=== PATIENT | male | born 1975 | race Caucasian/White ===

== ENCOUNTER → 2019-02-25 | Day surgery (SDC) | payer BC ==
[2019-02-22 10:36] VITALS: BMI 41.2
[~2019-02-25] MED LIST: BUPIVACAIN-EPI 0.25%-1:200,000 30 ML VIAL SQ ONE; DEXAMETHASONE SOD PHOSPHATE 10 MG/ML 1 ML VIAL IV ONE; GLYCOPYRROLATE 0.2 MG/ML 2 ML VIAL ONE; HEPARIN SODIUM,PORCINE 5,000 UNIT/ML 1 ML VIAL SQ ONE; HYDROcodone/APAP 5-325MG 1 EACH TAB PO ONE; LACTATED RINGERS 1,000 ML IV ONE; LACTATED RINGERS 1,000 ML IV SCH; LIDOCAINE 1% 20 ML VIAL (10MG/ML) FOR IV START INTRADERMA PRN; LIDOCAINE 1% INJ 10MG/ML (20 ML MDV) ONE; MIDAZOLAM 2 MG/2 ML VIAL ONE; ONDANSETRON 4 MG/2 ML VIAL IVP ONE; PROPOFOL 10 MG/ML 20 ML VIAL IV ONE; SUCCINYLCHOLINE CHLORIDE VIAL 200 MG/10 ML VIAL IV ONE; ceFAZolin 3 GM in SODIUM CHLORIDE 0.9% 100 ML IVPB ONE; ePHEDrine SULFATE/0.9% NACL/PF 50 MG/5 ML SYRINGE IV ONE; fentaNYL (PF) 50 MCG/ML 2 ML AMP IV PRN; fentaNYL (PF) 50 MCG/ML 2 ML AMP ONE; metroNIDAZOLE-NS PMX 500 MG in SALINE 1 100ML.BAG IVPB ONE
--- NOTE | 2019-02-25 07:52 | P.GSHP ---
History of Present Illness H&P Date: 02/25/19 Chief Complaint: Pilonidal cyst This a 43-year-old male who presents today for excision of pilonidal cyst. Patient is a chronically inflamed pilonidal cyst with history of abscess. Patient aware that we will be packed after surgery. Past Medical History Past Medical History: Hypertension Additional Past Medical History / Comment(s): pilonidal cyst, Hx kidney stones History of Any Multi-Drug Resistant Organisms: None Reported Additional Past Surgical History / Comment(s): lithotripsy, hx of pilodinal cyst sx Past Anesthesia/Blood Transfusion Reactions: Previous Problems w/ Anesthesia Additional Past Anesthesia/Blood Transfusion Reaction / Comment(s): states had epidural for prev. pilonidal cyst that leaked and he had to have blood patch Smoking Status: Former smoker - Past Family History Father Family Medical History: Cancer Medications and Allergies Home Medications Medication Instructions Recorded Confirmed Type Citalopram Hydrobromide 40 mg PO QAM 02/22/19 02/25/19 History [Citalopram HBr] Enalapril Maleate [Vasotec] 20 mg PO QAM 02/22/19 02/22/19 History Ibuprofen [Motrin Ib] 200 mg PO Q6H PRN 02/22/19 02/25/19 History amLODIPine [Norvasc] 5 mg PO QAM 02/22/19 02/22/19 History Allergies Allergy/AdvReac Type Severity Reaction Status Date / Time No Known Allergies Allergy Verified 02/25/19 06:44 Surgical - Exam Vital Signs Temp Pulse Resp BP Pulse Ox 97.1 F L 74 18 127/81 95 02/25/19 06:43 02/25/19 06:43 02/25/19 06:43 02/25/19 06:43 02/25/19 06:43 - General well developed, well nourished, no distress - Eyes PERRL - ENT normal pinna - Neck no masses - Respiratory normal expansion - Cardiovascular Rhythm: regular - Abdomen Abdomen: soft, non tender Assessment and Plan Assessment: Prognosis. We'll perform excision.
[2019-02-25 08:56] VITALS: TEMP 97.6
--- NOTE | 2019-02-25 08:58 | P.OP ---
Date of Procedure: 02/25/19 Preoperative Diagnosis: Pilonidal cyst with abscess Postoperative Diagnosis: Pilonidal cyst with abscess Procedure(s) Performed: Excision of pilonidal cyst Anesthesia: VICTORINO Surgeon: Juventino Schmidt Estimated Blood Loss (ml): 10 Pathology: other (Pilonidal cyst) Condition: stable Disposition: PACU Description of Procedure: The patient's placed Table in the prone position. He received general anesthesia. His pollinosis was prepped and draped usual sterile fashion. Elliptical skin incision was made around the pylorus is then using cautery and Harmonic scissors by mouth cyst was excised. The wound was packed with wet-to-dry Kerlix. Patient top she will was sent to recovery room in stable condition.
[2019-02-25] MEDS: HYDROmorphone 0.5 MG/0.5 ML SYRINGE IVP PRN ×4 (09:00→09:17)
[2019-02-25 09:41] VITALS: BP 107/72; PULSE 66; RESP 17
== END | disposition home or self-care (01) ==
LOC: OR 06:22
PROVIDERS: ATTEND Surgery
DX: L05.01 Pilonidal cyst with abscess (principal); I10 Essential (primary) hypertension; E66.01 Morbid (severe) obesity due to excess calories; Z79.899 Other long term (current) drug therapy; Z87.442 Personal history of urinary calculi; Z87.891 Personal history of nicotine dependence; Z98.890 Other specified postprocedural states; Z68.41 Body mass index [BMI] 40.0-44.9, adult
CPT/HCPCS: 88304; 11770; J2250; J0330; J1644; J1100; J0690; J2405; J2001; J3010; J2704; J1170

== ENCOUNTER → 2019-04-09 | Outpatient (CLI) | payer BC ==
--- NOTE | 2019-04-09 20:59 | CONS ---
CONSULTATION REASON FOR CONSULTATION: Sleep apnea. 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 He is tired all the time. He snores loudly. He quits breathing on multiple occasions. Sleep is very much fragmented and he has excessive tiredness and sleepiness during the day in addition to an [place] score of 22. He is considered to be at an increased risk of falling asleep while driving. He has never been involved in a motor vehicle accident. His sleep is quite fragmented and he wakes up at least 4 times in the middle of the night, sometimes with loud snoring. His weight is up; he is currently up to 340 pounds. Over the past 10 years he has gained around 40 pounds. He claims that his weight gain occurred especially after he quit smoking several years back. PAST MEDICAL HISTORY: Obesity, hypertension and osteoarthritis. SURGICAL HISTORY: Resection of a pilonidal cyst. DRUG ALLERGIES: NOT KNOWN. OUTPATIENT MEDICATIONS: Outpatient medications include omega-3, amlodipine, enalapril, citalopram and ibuprofen. SOCIAL HISTORY: The patient is an ex-smoker. No history of alcoholism. No history of IV drugs. FAMILY HISTORY: Negative for sleep apnea. Father from cardiac disease. REVIEW OF SYSTEMS: Fourteen-point review of systems was done. Positive findings were all mentioned above in the history of present illness. He is quite sleepy and somnolent. No sleepwalking or sleeptalking. No grinding of the teeth. No palpitation. No heartburn or chest pain overnight. He is very much tired and he falls asleep during the day. He worries about his sleepiness. He prefers to sleep on his side rather than stomach. He drinks two caffeinated beverages during the day. PHYSICAL EXAMINATION: VITAL SIGNS: BP is 144/78, pulse is 79, respirations 16, temperature 98.0, saturation 95% on room air. Height is 6 feet 2 inches, weight is 355 and BMI 44.7. [place] score is 22. Neck size 21. GENERAL APPEARANCE: Obese, calm, comfortable. HEAD: Atraumatic, normocephalic. NECK: Supple. No JVD. No goiter or neck masses. Mallampati class IV. LUNGS: Clear to auscultation. HEART: Heart sounds are regular rate and rhythm. Normal S1, S2. No S3, S4. No murmurs. ABDOMEN: Soft, nontender. No significant organomegaly. No direct tenderness, rebound or guarding. EXTREMITIES: No edema. No cyanosis or clubbing. NEUROLOGIC: Awake and alert. There is no focal neurological deficit. PSYCHIATRIC: Negative for anxiety or depression for now. The patient is taking citalopram and is well treated in that regard. IMPRESSION: 1. Obstructive sleep apnea with a high clinical suspicion; needs to be further investigated. The patient has features to support this diagnosis, as the patient has loud snoring, witnessed apneas and chronic hypersomnia and sleepiness. 2. Hypersomnia with an [place] score of 22; high likelihood for obstructive sleep apnea. 3. Obesity with a body mass index of 44.7. 4. Hypertension. 5. Osteoarthritis. 6. Chronic anxiety/depression, on citalopram. PLAN: 1. Proceed with a home sleep study to screen this patient for sleep apnea. 2. Encourage weight loss. 3. Driving precautions were given, and the patient was asked not to drive, especially if feeling drowsy or sleepy. 4. I asked him to sleep on his side with the head of the bed elevated. 5. Implement good sleep hygiene measures. 6. Continue to see me here in the sleep center following the home sleep study. As mentioned, there is a high likelihood for obstructive sleep apnea in this patient. Further recommendations are to follow based on the results of the sleep study. RICHARD / IMTIAZ: [id number] /
== END | disposition home or self-care (01) ==
LOC: SLEEP 13:17
PROVIDERS: ATTEND Internal Medicine
DX: G47.30 Sleep apnea, unspecified (principal); E66.9 Obesity, unspecified; I10 Essential (primary) hypertension; M19.90 Unspecified osteoarthritis, unspecified site; Z87.891 Personal history of nicotine dependence; Z68.41 Body mass index [BMI] 40.0-44.9, adult; Z79.1 Long term (current) use of non-steroidal anti-inflammatories (NSAID); Z79.899 Other long term (current) drug therapy
CPT/HCPCS: 99211

== ENCOUNTER → 2020-12-15 | Day surgery (SDC) | payer BC ==
[2020-12-11 12:04] VITALS: BMI 45.0
[~2020-12-15] MED LIST changes: +ACETAMINOPHEN TAB 500 MG TAB PO PRN; -BUPIVACAIN-EPI 0.25%-1:200,000 30 ML VIAL SQ ONE; +BUPIVACAINE (PF) 0.25% 30 ML VIAL SQ ONE; -DEXAMETHASONE SOD PHOSPHATE 10 MG/ML 1 ML VIAL IV ONE; +DEXAMETHASONE SOD PHOSPHATE 4 MG/ML 1 ML VIAL IV ONE; -HEPARIN SODIUM,PORCINE 5,000 UNIT/ML 1 ML VIAL SQ ONE; +HEPARIN SODIUM,PORCINE/PF 5,000 UNIT/0.5 ML SYRINGE SQ PRN; -HYDROcodone/APAP 5-325MG 1 EACH TAB PO ONE; +HYDROmorphone 0.5 MG/0.5 ML SYRINGE IVP PRN; +KETAMINE 10 MG/ML 20 ML VIAL ONE; +KETOROLAC 15 MG/ML 1 ML VIAL ONE; -LACTATED RINGERS 1,000 ML IV SCH; -LIDOCAINE 1% 20 ML VIAL (10MG/ML) FOR IV START INTRADERMA PRN; +NEOSTIGMINE 1 MG/ML 10 ML VIAL ONE; +ROCURONIUM 10 MG/ML (5 ML VIAL) IV ONE; -ceFAZolin 3 GM in SODIUM CHLORIDE 0.9% 100 ML IVPB ONE; +ceFAZolin 3 GM in SODIUM CHLORIDE 0.9% 100 ML IVPB PRN; -ePHEDrine SULFATE/0.9% NACL/PF 50 MG/5 ML SYRINGE IV ONE; -fentaNYL (PF) 50 MCG/ML 2 ML AMP IV PRN; -metroNIDAZOLE-NS PMX 500 MG in SALINE 1 100ML.BAG IVPB ONE; +metroNIDAZOLE-NS PMX 500 MG in SALINE 1 100ML.BAG IVPB PRN
[2020-12-15] MEDS: LACTATED RINGERS 1,000 ML IV SCH ×2 (07:24→08:00)
[2020-12-15 07:34] LABS: HCT 39.9 % (39.0-53.0); MCH 29.7 pg (25.0-35.0); MCHC 35.1 g/dL (31.0-37.0); MCV 84.5 fL (80.0-100.0); Mean Platelet Volume 8.8; Platelet Count 202 k/uL (150-450); RBC 4.72 m/uL (4.30-5.90); RDW 13.3 % (11.5-15.5); WBC 6.7 k/uL (3.8-10.6)
--- NOTE | 2020-12-15 08:12 | P.GSHP ---
History of Present Illness H&P Date: 12/15/20 Chief Complaint: Pilonidal cyst Is a 45 row male who has developed a recurrent pilonidal cyst. Patient presents today for excision. Patient aware that we will be packed. Past Medical History Past Medical History: Hypertension Additional Past Medical History / Comment(s): pilonidal cyst, Hx kidney stones History of Any Multi-Drug Resistant Organisms: None Reported Additional Past Surgical History / Comment(s): lithotripsy, hx of pilodinal cyst sx Past Anesthesia/Blood Transfusion Reactions: Previous Problems w/ Anesthesia Additional Past Anesthesia/Blood Transfusion Reaction / Comment(s): states had epidural for prev. pilonidal cyst that leaked and he had to have blood patch Smoking Status: Former smoker - Past Family History Father Family Medical History: Cancer Medications and Allergies Home Medications Medication Instructions Recorded Confirmed Type Citalopram Hydrobromide 40 mg PO QAM 02/22/19 12/11/20 History [Citalopram HBr] Enalapril Maleate [Vasotec] 20 mg PO QAM 02/22/19 12/11/20 History Ibuprofen [Motrin Ib] 200 mg PO Q6H PRN 02/22/19 12/11/20 History amLODIPine [Norvasc] 5 mg PO QAM 02/22/19 12/11/20 History Allergies Allergy/AdvReac Type Severity Reaction Status Date / Time No Known Allergies Allergy Verified 12/11/20 11:55 Surgical - Exam Vital Signs Temp Pulse Resp BP Pulse Ox 97.6 F 98 16 158/97 98 12/15/20 07:01 12/15/20 07:01 12/15/20 07:01 12/15/20 07:01 12/15/20 07:01 - General well developed, well nourished, no distress - Eyes PERRL - ENT normal pinna - Neck no masses - Respiratory normal expansion - Cardiovascular Rhythm: regular - Abdomen Abdomen: soft, non tender Results - Labs 12/15/20 07:20 Assessment and Plan Assessment: Pilonidal cyst. We'll perform excision.
[2020-12-15 09:08] VITALS: TEMP 97
--- NOTE | 2020-12-15 09:19 | P.OP ---
Date of Procedure: 12/15/20 Preoperative Diagnosis: Pilonidal cyst Postoperative Diagnosis: Pilonidal cyst Procedure(s) Performed: Excision of pilonidal cyst Anesthesia: VICTORINO Surgeon: Juventino Schmidt Estimated Blood Loss (ml): 20 Pathology: other (Pilonidal cyst) Condition: stable Disposition: PACU Description of Procedure: The patient's placed on the operating table in the supine position. He received a general endotracheal tube anesthesia. He was then placed in the prone position. The area paralysis was prepped and draped usual sterile fashion. Using a 15 blade elliptical skin incision was made around the paralysis. Then using left cautery the subcutaneous tissues were divided. The prognosis was then dissected free. The specimens of pathology. The wound measured approximately 10 x 5 cm x 4 cm. Hemostasis achieved with cautery. The wound was then packed with wet-to-dry Kerlix. Patient top she will was sent to recovery room stable condition.
[2020-12-15 09:54] VITALS: RESP 20
[2020-12-15 10:44] VITALS: BP 104/56; PULSE 50
== END | disposition home or self-care (01) ==
LOC: OR 06:23
PROVIDERS: ATTEND Surgery
DX: L05.01 Pilonidal cyst with abscess (principal); I10 Essential (primary) hypertension; Z87.442 Personal history of urinary calculi; Z87.891 Personal history of nicotine dependence; Z80.9 Family history of malignant neoplasm, unspecified; Z79.899 Other long term (current) drug therapy; F41.9 Anxiety disorder, unspecified
CPT/HCPCS: 88304; 85027; 11770; J2250; J0330; J1100; J2710; J0690; J2405; J2001; J3010; J1885; J2704; J1170; J1644